=== PATIENT | female | born 1955 | race Caucasian/White ===

== ENCOUNTER → 2021-08-04 08:48 | Outpatient (BNVA) | payer MEDICARE, MEDICAID, SELFPAY | PROVIDERS: PCP Family Medicine; Visit Provider Psychiatry & Neurology Psychiatry | DX: F41.1 Generalized anxiety disorder (principal); F33.1 Major depressive disorder, recurrent, moderate | CPT/HCPCS: 99204 ==

== ENCOUNTER 2022-03-13 14:54 | Emergency (ER) | payer MEDICARE, MEDICAID, SELFPAY ==
[2022-03-13 14:55] VITALS: BP 131/77; PULSE 87; RESP 18; TEMP 36.7; O2SAT 96
--- NOTE | 2022-03-13 15:09 | XRR_ITS ---
PROCEDURE INFORMATION: Exam: XR Right Shoulder Exam date and time: 03/13/2022 4:35 PM Age: 66 years old Clinical indication: Injury or trauma; Fall; Blunt trauma (contusions or hematomas); Shoulder; Right TECHNIQUE: Imaging protocol: Radiologic exam of the Right shoulder. Views: 2 or more views. COMPARISON: No relevant prior studies available. FINDINGS: Bones/joints: Cortical step off at the humeral neck suspicious for a fracture. Unclear if there is a transverse neck fracture component and/or greater tuberosity component. No obvious dislocation. CT correlation may be considered if clinically indicated. Mild chronic AC joint hypertrophy. Soft tissues: Normal. Other findings: Three views submitted. XR/XR shoulder RT min 2V* [id number] IMPRESSION: Proximal humeral fracture as described.
--- NOTE | 2022-03-13 15:09 | CTR_ITS ---
PROCEDURE INFORMATION: Exam: CT Head Without Contrast Exam date and time: 03/13/2022 4:39 PM Age: 66 years old Clinical indication: Injury or trauma; Fall; Concussion/head injury TECHNIQUE: Imaging protocol: Computed tomography of the head without contrast. Radiation optimization: All CT scans at this facility use at least one of these dose optimization techniques: automated exposure control; mA and/or kV adjustment per patient size (includes targeted exams where dose is matched to clinical indication); or iterative reconstruction. COMPARISON: No relevant prior studies available. RADIATION DOSE METRICS: Total DLP (mGy-cm): 1086.04 FINDINGS: Brain: Minimal atrophy. No hemorrhage. Unremarkable white matter. No mass effect. Cerebral ventricles: No ventriculomegaly. Paranasal sinuses: Visualized sinuses are unremarkable. No fluid levels. Mastoid air cells: Visualized mastoid air cells are well aerated. Bones/joints: Unremarkable. No acute fracture. Soft tissues: Unremarkable. CT/CT head wo con* [id number] IMPRESSION: No acute intracranial abnormality.
[2022-03-13 15:33] LABS: Basophils % 0.6 %; Eosinophils # 0.2 10^3/uL (0.0-0.8); Eosinophils % 2.7 %; Hematocrit 42.1 % (37.0-47.0); Hemoglobin 13.8 g/dL (11.5-15.3); Lymphocytes # 1.7 10^3/uL (0.8-4.8); Lymphocytes % 26.3 %; Mean Corpuscular HGB Conc 32.8 g/dL (30.0-36.0); Mean Corpuscular Hemoglobin 28.9 pg (28.0-34.0); Mean Corpuscular Volume 88.1 fl (81-99); Mean Platelet Volume 11.1 fL (7.4-10.4); Monocytes # 0.4 10^3/uL (0.2-0.9); Monocytes % 6.3 %; Neutrophils # 4.05 10^3/uL (1.8-7.7); Neutrophils % 63.3 %; Nucleated Red Blood Cells % 0 %; Platelet Count 341 10^3/cmm (130-400); Red Blood Count 4.78 10^6/uL (4.1-5.3); Red Cell Distribution Width 13.3 % (12.1-15.1); White Blood Count 6.4 10^3/uL (4.0-10.0)
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
[2022-03-13 15:45] VITALS: RESP 18
[2022-03-13] MEDS: fentaNYL 50 mcg/mL INJ 2mL IVP (15:45)
[2022-03-13] MEDS: tetanus-dipt-pertussis 0.5 mL SDV IM (16:04)
[2022-03-13 16:10] LABS: Alanine Aminotransferase 12 U/L (0-33); Albumin Level 3.6 g/dL (3.5-5.2); Alkaline Phosphatase 97 U/L (35-105); Aspartate Amino Transferase 14 U/L (0-32); Blood Urea Nitrogen 10 mg/dL (8-23); Carbon Dioxide 24 mmol/L (22-29); Chloride 100 mmol/L (98-107); Globulin 3.8 g/dL (1.3-4.6); Glucose 126 mg/dL (65-115); Osmolality Calculated 285 mOsm/kg (285-295); Sodium 137 mmol/L (136-145); Total Bilirubin 0.3 mg/dL (0.15-1.2); Total Protein 7.4 g/dL (6.6-8.7)
[2022-03-13 16:13] LABS: Anion Gap 16.6 (5-19); Potassium 3.6 mmol/L (3.5-5.1)
[2022-03-13 16:47] VITALS: RESP 16
[2022-03-13] MEDS: morphine 4 mg/mL SDV 1 mL IVP (16:47)
--- NOTE | 2022-03-13 17:12 | PC.NURSE ---
Patient assisted to bathroom after pain medication and placement of sling to right arm. Patient has ongoing c/o pain.
[2022-03-13 17:40] VITALS: RESP 18
[2022-03-13] MEDS: HYDROmorphone 1 mg/mL INJ 1 mL IVP (17:40)
[2022-03-13 17:54] LABS: Blood Urine 3+ (Negative); Glucose Urine UA Norm (Normal); Ketones Urine Negative (Negative); Protein Urine Trace (Negative); Urine Appearance Hazy (CLEAR); Urine Color Yellow (Yellow); pH Urine 6 (5-7)
[2022-03-13 17:55] LABS: Add Urine Microscopic? YES; Bilirubin Urine Neg (Negative); Leukocyte Esterase Urine 2+ (Negative); Nitrate Urine Positive (Negative); RBC Urine 0-4 /hpf (0-2); Urobilinogen Urine Norm (Negative)
[2022-03-13 17:56] LABS: Add Urine Culture? Yes; Bacteria Urine 2+ /hpf
[2022-03-13 18:40] VITALS: BP 121/93; PULSE 95; RESP 20; TEMP 36.7; O2SAT 99
[2022-03-13] MEDS: cephALEXin 500 mg Capsule PO (18:43)
--- NOTE | 2022-03-14 11:36 | DCPLANNER ---
Addendum entered by Luly Macias 03/17/22 16:27: verification manager received the following message from the ortho front office regarding follow up appointment: have tried to call patient yesterday and today to get her in with Dr. Trevizo- her number will not dial out and i have tried on several phones. also tried her sister listed under contacts and it says number is not in service. Original Note: verification manager had message to schedule a follow up appointment for patient with ortho. verification manager sent patients information to the front office staff at ortho. Patients information will be printed and reviewed. Clinic will call patient with appointment information.
== END 2022-03-13 18:40 | disposition home or self-care (01) ==
PROVIDERS: Emergency Provider Emergency Medicine; PCP Family Medicine
DX: S09.8XXA Other specified injuries of head, initial encounter (principal); S42.211A Unspecified displaced fracture of surgical neck of right humerus, initial encounter for closed fracture; S01.112A Laceration without foreign body of left eyelid and periocular area, initial encounter; N39.0 Urinary tract infection, site not specified; W18.30XA Fall on same level, unspecified, initial encounter; Z23 Encounter for immunization
CPT/HCPCS: 70450; 73030; 80053; 81001; 83735; 84443; 85025; 87086; 90471; 90715; 96374; 96375; 99285; J1170; J2270; J3010